=== PATIENT | female | born 1955 | race Hispanic/Latino ===

== ENCOUNTER 2017-10-03 14:39 | Emergency (ER) | payer SELFPAY ==
[~2017-10-03] VITALS: Ht 157.5 cm; Wt 81.6 kg
[2017-10-03] MEDS ORDERED: TRAMADOL HCL 50 MG TAB PO ONE (14:45)
--- NOTE | 2017-10-03 16:01 | Diagnostic Imaging Report ---
KNEE LEFT THREE VIEWS, KNEE RIGHT THREE VIEWS - 3 views HISTORY: Pain COMPARISON: None available. FINDINGS: Bones: No acute displaced fracture. Osseous alignment is within normal limits. Joints: Moderate degenerative changes of the medial compartment of the right knee. Mild degenerative changes of the medial compartment of the left knee. Soft tissues: Small left suprapatellar joint effusion. IMPRESSION: No acute osseous abnormality. Moderate degenerative changes of the medial compartment of the right knee. Signed by: Dr. Ernestina Aceves M.D. on 10/03/2017 3:57 PM
--- NOTE | 2017-10-03 16:07 | Diagnostic Imaging Report ---
Exams: Head and cervical spine CTs without IV contrast History: Trauma, fall Comparison studies: None Technique: Axial images were obtained from the brain and cervical spine. Coronal and sagittal images reconstructed from the axial data. Intravenous contrast: None Findings: Head CT: Scalp: Mild right paramedian frontal scalp swelling. Bones: No fractures, blastic or lytic lesions. Extra-axial spaces: No masses. No fluid collections. Brain sulci: Appropriate for age. Ventricles: Normal in size and configuration. No hydrocephalus. Parenchyma: No abnormal densities. No masses, acute, acute or chronic vascular insults. Sellar/suprasellar region: No abnormalities. Craniocervical junction: The foramen magnum is patent. No Chiari one malformation. Cervical spine CT: Fractures: None. Soft tissues: No gross acute abnormalities. Atlantoaxial articulation: Intact. Alignment: Mild cervical kyphosis centered at C5-C6. No subluxations. Cervicomedullary junction: No abnormalities. The foramen magnum is patent. Vertebrae: No infection or neoplasm. Degenerative changes: Mildly degenerated disks from C3 to C6. Disc osteophyte complex at C3-C4 results in mild canal stenosis. Mild to moderate canal stenosis at C4-C5 and at C5-C6 due to disc osteophyte complexes and ossification the posterior longitudinal ligament. Uncovertebral arthrosis results and moderate left and mild right foraminal stenosis at C4-C5 and mild/moderate right and mild left foraminal stenosis at C5-C6. Incidental findings: Atherosclerotic calcifications in the carotid siphons and in the cervical carotid bulbs. Enlarged bilateral oropharyngeal tonsils, greater than expected for age also contains small tonsilloliths as sequela of previous infection/inflammation. Tonsillar enlargement likely related to nonspecific reactive hyperplasia, especially if in the context of recent throat or viral infection. Recommend correlation with direct visualization to confirm. IMPRESSION: Head CT: 1. No acute intracranial abnormalities. 2. Mild frontal scalp swelling without underlying fracture. Cervical spine CT: 1. No cervical spine fracture or subluxation. 2. Degenerative changes as described. 3. Cannot adequately evaluate ligament, spinal cord and or vascular abnormalities on the basis of this examination. 4. Incidental oropharyngeal tonsillar enlargement has described. Signed by: Dr. rFancisco Correia M.D. on 10/03/2017 4:04 PM
[2017-10-03 16:54] VITALS: BP 155/76
== END 2017-10-03 16:45 | disposition home or self-care (01) ==
LOC: ER 14:39
DX: S00.83XA Contusion of other part of head, initial encounter (principal); S80.02XA Contusion of left knee, initial encounter; W01.0XXA Fall on same level from slipping, tripping and stumbling without subsequent striking against object, initial encounter; Y92.008 Other place in unspecified non-institutional (private) residence as the place of occurrence of the external cause; E11.9 Type 2 diabetes mellitus without complications
CPT/HCPCS: 70450; 72125; 99283